=== PATIENT | female | born 1965 | race Caucasian/White ===

== ENCOUNTER 2020-11-21 12:10 | Emergency (ER) | payer SELFPAY ==
[~2020-11-21] VITALS: Ht 175.2 cm; Wt 56.6 kg
[2020-11-21] MEDS ORDERED: ORPHENADRINE 60 MG/2 ML (NORFLEX) AMP (ED ONLY) IM STA (12:33)
[2020-11-21] MEDS ORDERED: HYDROcodone/APAP 5 MG/325 MG (LORTAB) TAB PO ONE (12:45)
--- NOTE | 2020-11-21 13:00 | ED Back Pain ---
General Chief Complaint: Back Problems Stated Complaint: BACK PAIN Nursing Triage Note: Pt to ED in wheelchair. Pt reports having many back problems and reports coughing this morning and then feeling severe pain in the L lower back near hip. Pt denies COVID exposure or symptoms. Nursing Sepsis Screen: No Definite Risk History of Present Illness Date Seen by Provider: Nov 21, 2020 Time Seen by Provider: 12:15 Initial Comments 55 year old female presents via private auto, tearful from low back pain that started at 8:30 am this morning, after coughing. She has a history of degen disk disease lumbar spine and cervical spine surgery. She reports the pain began acutely in her low back and then radiates to the left hip and down the left leg causing tingling. She denies any bowel or bladder incontinence or retention. She took 1 gabapentin and Flexeril when the pain began this morning, these are both medications of her nephews and she has not prescribed either medication to take on a regular basis. She did not take anything specifically for pain. She reports smoking marijuana daily, her last use was at 0800 today. She has had no previous surgeries on her lumbar spine. She moved here from [place] because she has Hep C and family here were treated for free for Hep C and it is very costly in [place], she is going to [facility] for Hep C. Location: Lumbar Spine, Paraspinous Muscles Timing/Duration: 4-6 Hours Severity: Moderate Pain/Injury Location: Back (Lumbar spine) Radiation: Buttocks (left), Lower Legs, Upper Legs Associated Symptoms: muscle spasms, tingling in legs/feet (left), lower back pain; No loss of bladder control, No loss of bowel control Allergies and Home Medications Allergies Coded Allergies: Penicillins (Verified Allergy, Severe, Anaphylaxis, 11/21/20) Home Medications Cyclobenzaprine HCl 10 Mg Tablet, 10 MG PO Q8H PRN for SPASMS Prescribed by: CRUZ BARONE on 11/21/20 1352 Oxycodone HCl/Acetaminophen 1 Each Tablet, 1 EACH PO Q6H PRN for PAIN-SEVERE Prescribed by: CRUZ BARONE on 11/21/20 1353 Patient Home Medication List Home Medication List Reviewed: Yes Review of Systems Constitutional: no symptoms reported, see HPI Gastrointestinal: no symptoms reported, see HPI; No constipation, No nausea, No vomiting Genitourinary: no symptoms reported, see HPI; No dysuria, No frequency, No incontinence Musculoskeletal: see HPI, back pain, muscle pain; No neck pain All Other Systems Reviewed Negative Unless Noted: Yes Past Pcsenxh-Adqnnk-Zgodxx Hx Past Med/Social Hx: Reviewed and Corrections made Patient Social History Alcohol Use: Denies Use Drug of Choice: Marijuana Smoking Status: Current Everyday Smoker Type Used: Cigarettes 2nd Hand Smoke Exposure: Yes Recent Infectious Disease Expo: No Recent Hopitalizations: No Seasonal Allergies Seasonal Allergies: No Past Medical History Surgeries: Yes (elías in neck, ) Section, Orthopedic Respiratory: Yes (lung surgery) Cardiac: Yes Hypertension Neurological: Yes (raynauds) Neuropathy Gastrointestinal: Yes (Hep C) Hepatitis Musculoskeletal: Yes Degenerate Disk Disease, Arthritis, Chronic Back Pain 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 oz. kg; 18.00 BMI Method: General Appearance: No Apparent Distress, WD/WN Neck: Full Range of Motion, Normal Inspection, Non Tender, Supple Cardiovascular: Regular Rate, Rhythm, No Edema, No Murmur, Normal Peripheral Pulses Respiratory: Chest Non Tender, Lungs Clear, Normal Breath Sounds Gastrointestinal: Normal Bowel Sounds, Non Tender, Soft Back: Normal Inspection, No CVA Tenderness, Decreased Range of Motion (secondary to pain), Muscle Spasm, Vertebral Tenderness, Other (tenderness to palpation to lower lumbar spine with radiation to left hip, power V/V L4-S1. Dec reased sensation to left lower leg. Pain with SLR. ) Extremity: Normal Capillary Refill, Normal Inspection, Normal Range of Motion, Non Tender, No Pedal Edema Neurologic/Psychiatric: Alert, Oriented x3, No Motor/Sensory Deficits, Normal Mood/Affect Skin: Normal Color, Warm/Dry Ambulates with an antalgic gait, favoring her left leg. Able to rise onto toes and heels. Progress/Results/Core Measures Results/Orders My Orders Orders - CRUZ BARONE Hydrocodone/Apap 5/325 Tablet (Lortab 5 (1/24/21 12:45) Orphenadrine Inj (Ed Only) (Norflex Inje (11/21/20 12:33) Ct Lumbar Spine Wo (11/21/20 12:34) Medications Given in ED Current Medications Medications Dose Ordered Sig/Adalberto Route Start Time Stop Time Status Last Admin Dose Admin Acetaminophen/ Hydrocodone Bitart 1 tab ONCE ONCE PO 11/21/20 12:45 11/21/20 12:46 DC 11/21/20 12:38 1 TAB Vital Signs/I&O 11/21/20 12:19 Temp 36.2 Pulse 105 Resp 16 B/P (MAP) 148/91 (110) Pulse Ox 95 O2 Delivery Room Air Blood Pressure Mean: 110 Progress Progress Note : Time: 12:15 Progress Note patient seen and evaluated, will give Lortab 5/325 mg and Norflex [address] L Spine, once pain better controlled. 1300 CT results reviewed with the patient, no acute findings. Discussed not taking medications that have not been prescribed to her. She had minimal improvement in her symptoms after the Flexeril and Lortab. Per [facility], the patient has been prescribed Xanax in Aug and Sep 2020 (#56, 90 and 90), patient reports she has not taken Xanax for 4 months. She then reports she took them in Sep, but stopped after the last Rx. No side effects when she quit taking them. 1320 Discharge instructions and return precautions reviewed with the patient. All questions answered. Comment NAME: CARLOS CHUA [facility] REC#: [id number] PT STATUS: REG ER : 1965 PHYSICIAN: CRUZ BARONE ADMIT DATE: 11/21/20/ER Signed Date of Exam:11/21/20 CT LUMBAR SPINE WO PROCEDURE: CT lumbar spine without contrast. TECHNIQUE: Multiple contiguous axial images were obtained through the lumbar spine without the use of intravenous contrast. Sagittal and coronal reformations were then performed. Auto Exposure Controls were utilized during the CT exam to meet ALARA standards for radiation dose reduction. INDICATION: Low back pain. FINDINGS: There is straightening of the normal lumbar lordosis. The vertebral body heights well-maintained. No spondylolysis or spondylolisthesis. No fractures are identified. Moderate degenerative disc disease at L4-L5 and L5-S1. There are vacuum discs at both levels. There is also endplate sclerosis and marginal osteophytosis. There is lower lumbar hypertrophic degenerative facet disease. No spondylolysis or spondylolisthesis. No fractures are identified. The aorta is nonaneurysmal. Kidneys normal in appearance. IMPRESSION: Lower lumbar degenerative disc disease and spondylosis as described. Dictated by: Dictated on workstation # [id number] Dict: 11/21/20 1306 Trans: 11/21/20 1313 CV [id number] Interpreted by: BYRON SANCHEZ MD Electronically signed by: BYRON SANCHEZ MD 11/21/20 1313 Diagnostic Imaging Diagonstic Imaging: CT Plain Films/CT/US/NM/MRI: other (L spine) Reviewed: Reviewed by Me Departure Impression Primary Impression: Lumbar radiculopathy Additional Impressions: Back strain Qualified Codes: S39.012A - Strain of muscle, fascia and tendon of lower back, initial encounter Lumbar sprain Qualified Codes: S33.5XXA - Sprain of ligaments of lumbar spine, initial encounter Chronic back pain Qualified Codes: M54.42 - Lumbago with sciatica, left side; G89.29 - Other chronic pain Disposition: HOME, SELF-CARE Condition: Stable Departure-Patient Inst. Decision time for Depature: 13:20 Referrals: ALDA BRUCE MD (PCP/Family) Primary Care Physician Patient Instructions: Back Muscle Strain (DC), Low Back Pain (DC), Radiculopathy (DC) Add. Discharge Instructions: Alternate warm moist compressions and ice to your lumbar spine 20 min every 2 hours. Alternate between Tylenol 650 mg and ibuprofen 600 mg every 4 hours for pain. Continue to use your Flexeril as prescribed. Follow-up with your primary care provider if symptoms are not improving or worsen. Return to the emergency department for new, urgent healthcare needs. All discharge instructions reviewed with patient and/or family. Voiced understanding. Scripts Oxycodone HCl/Acetaminophen (Oxycodone-Acetaminophen 5-325) 1 Each Tablet 1 EACH PO Q6H PRN for PAIN-SEVERE MDD 6, #12 TAB 0 Refills Prov: CRUZ BARONE 11/21/20 Cyclobenzaprine HCl (Cyclobenzaprine HCl) 10 Mg Tablet 10 MG PO Q8H PRN for SPASMS, #15 TAB 0 Refills Prov: CRUZ BARONE 11/21/20 Copy Copies To 1: ALDA BRUCE MD; DAINA BRUCE MD, AMY ARNP Nov 21, 2020 13:00
--- NOTE | 2020-11-21 13:12 | Diagnostic Imaging Report ---
PROCEDURE: CT lumbar spine without contrast. TECHNIQUE: Multiple contiguous axial images were obtained through the lumbar spine without the use of intravenous contrast. Sagittal and coronal reformations were then performed. Auto Exposure Controls were utilized during the CT exam to meet ALARA standards for radiation dose reduction. INDICATION: Low back pain. FINDINGS: There is straightening of the normal lumbar lordosis. The vertebral body heights well-maintained. No spondylolysis or spondylolisthesis. No fractures are identified. Moderate degenerative disc disease at L4-L5 and L5-S1. There are vacuum discs at both levels. There is also endplate sclerosis and marginal osteophytosis. There is lower lumbar hypertrophic degenerative facet disease. No spondylolysis or spondylolisthesis. No fractures are identified. The aorta is nonaneurysmal. Kidneys normal in appearance. IMPRESSION: Lower lumbar degenerative disc disease and spondylosis as described. Dictated by: Dictated on workstation # [id number]
[2020-11-21] MEDS ORDERED: CYCL10TA9 PO (13:52)
[2020-11-21] MEDS ORDERED: OXYC-471 PO (13:52)
[2020-11-21 14:18] VITALS: BP 138/89
== END 2020-11-21 14:10 | disposition home or self-care (01) ==
LOC: ER 12:13
DX: S39.012A Strain of muscle, fascia and tendon of lower back, initial encounter (principal); M54.16 Radiculopathy, lumbar region; G89.29 Other chronic pain; F17.210 Nicotine dependence, cigarettes, uncomplicated; Z88.0 Allergy status to penicillin; X58.XXXA Exposure to other specified factors, initial encounter
CPT/HCPCS: 72131